=== PATIENT | male | born 1955 | race Caucasian/White ===

== ENCOUNTER 2018-11-13 16:40 | Inpatient (IN) | payer BC ==
--- NOTE | 2018-11-13 17:44 | ER Document Report ---
ED General - General Chief Complaint: Numbness Stated Complaint: DIZZY/LIMB NUMBNESS Time Seen by Provider: 11/13/18 17:22 Notes: 63-year-old male to the emergency department for evaluation of near syncopal episode. Patient was at a local restaurant when he began to feel very lightheaded and dizzy. Almost passed out. Did not pass out. Went to the car and sat down while his went inside for dinner. Continue to have feelings of dizziness. Developed numbness around his lips and face and hands and feet. States that he was relaxed and in no acute distress other than feeling like he was about to pass out. Eventually they decided to call the ambulance. Patient has been battling with some hypotensive episodes. Scheduled to be seen by GI. [place] of workup. Was recently started on new blood pressure medications and his blood pressures have been low. They have since decrease of blood pressure medication but his blood pressure has remained low. Followed by cardiothoracic surgery due to severe aortic stenosis. Has had open heart surgery in the past. Is not a candidate f or open heart surgery. Currently he is being followed by CT surgery, Dr. Dowling. TRAVEL OUTSIDE OF THE [place] IN LAST 30 DAYS: No - HPI Onset: Just prior to arrival Onset/Duration: Sudden, Constant Quality of pain: No pain Severity: Moderate Pain Level: Denies Associated symptoms: Weakness, Other - Perioral paresthesias Relieved by: Denies Similar symptoms previously: No - Related Data Allergies/Adverse Reactions: acetaminophen [From Percocet] Allergy (Verified 11/13/18 16:43) hydrocodone [From Vicodin] Allergy (Verified 11/13/18 16:43) latex Allergy (Verified 11/13/18 16:43) oxycodone [From Percocet] Allergy (Verified 11/13/18 16:43) Penicillins Allergy (Verified 11/13/18 16:43) Sulfa (Sulfonamide Antibiotics) Allergy (Verified 11/13/18 16:43) Past Medical History - General Information source: Patient - Social History Smoking Status: Never Smoker Frequency of alcohol use: None Drug Abuse: None Lives with: Spouse/Significant other Family History: CAD, Hypertension Patient has suicidal ideation: No Patient has homicidal ideation: No - Past Medical History Cardiac Medical History: Reports: Hx Coronary Artery Disease, Hx Heart Murmur Pulmonary Medical History: Reports: None Neurological Medical History: Reports: None Endocrine Medical History: Reports: None Renal/ Medical History: Denies: Hx Peritoneal Dialysis Malignancy Medical History: Reports None Review of Systems - Review of Systems Notes: Constitutional: denies: Chills, Diaphoresis, Fever, Malaise, +Weakness EENT: denies: Eye discharge, Blurred vision, Tearing, Double vision, Nose congestion, Nose discharge, Throat swelling, Mouth pain Cardiovascular: denies: Palpitations, Heart racing, Orthopnea, Dyspnea, Chest pain Respiratory: denies: Cough, Hurts to breathe, Wheezing, Shortness of breath Gastrointestinal: denies: Abdominal pain, Diarrhea, Nausea, Vomiting, Black stools, bright red blood in stool Genitourinary: denies: Burning, Dysuria, Discharge, Frequency, Flank pain, Hematuria Musculoskeletal: denies: Joint pain, Joint swelling, Muscle pain, Muscle stiffness, back pain Hematologic/Lymphatic: denies: Anemia, Easy bleeding, Easy bruising, Blood clots Neurological/Psychological: denies: Confusion, Dementia, Depression, Loss of consciousness Skin: No lesions, no masses, no skin breakdown, no abscesses Physical Exam - Vital signs Vitals: Temp Pulse Resp BP Pulse Ox 97.3 F 71 18 99/61 L 98 11/13/18 16:45 11/13/18 16:45 11/13/18 16:45 11/13/18 16:45 11/13/18 16:45 Course - Re-evaluation Re-evalutation: 11/13/18 20:25 Laboratory 11/13/18 11/13/18 11/13/18 17:10 17:10 17:10 WBC 6.6 RBC 2.69 L Hgb 7.4 L Hct 22.7 L MCV 85 MCH 27.5 MCHC 32.6 RDW 22.6 H Plt Count 223 Seg Neutrophils % 69.5 Lymphocytes % 17.0 Monocytes % 10.2 Eosinophils % 2.8 Basophils % 0.5 Absolute Neutrophils 4.6 Absolute Lymphocytes 1.1 Absolute Monocytes 0.7 Absolute Eosinophils 0.2 Absolute Basophils 0.0 Platelet Estimate ALUM OPERATOR Sodium 142.2 Potassium 4.2 Chloride 107 Carbon Dioxide 22 Anion Gap 13 BUN 39 H Creatinine 1.97 H Est GFR ( Amer) 42 L Est GFR (Non-Af Amer) 35 L Glucose 117 H Calcium 8.6 Total Bilirubin 0.4 Direct Bilirubin 0.3 Neonat Total Bilirubin Not Reportable Neonat Direct Bilirubin Not Reportable Neonat Indirect Bili Not Reportable AST 16 L ALT 24 Alkaline Phosphatase 114 Creatine Kinase 41 L CK-MB (CK-2) 0.65 Troponin I < 0.012 Total Protein 7.1 Albumin 3.6 Urine Color Urine Appearance Urine pH Ur Specific Tracy Urine Protein Urine Glucose (UA) Urine Ketones Urine Blood Urine Nitrite Urine Bilirubin Urine Urobilinogen Ur Leukocyte Esterase Urine WBC (Auto) U Hyaline Cast (Auto) Squamous Epi Cells Auto Urine Mucus (Auto) Urine Ascorbic Acid Stool Occult Blood Slides for Path Review ALUM OPERATOR Crossmatch 11/13/18 11/13/18 11/13/18 17:49 19:21 19:25 WBC RBC Hgb Hct MCV MCH MCHC RDW Plt Count Seg Neutrophils % Lymphocytes % Monocytes % Eosinophils % Basophils % Absolute Neutrophils Absolute Lymphocytes Absolute Monocytes Absolute Eosinophils Absolute Basophils Platelet Estimate Sodium Potassium Chloride Carbon Dioxide Anion Gap BUN Creatinine Est GFR ( Amer) Est GFR (Non-Af Amer) Glucose Calcium Total Bilirubin Direct Bilirubin Neonat Total Bilirubin Neonat Direct Bilirubin Neonat Indirect Bili AST ALT Alkaline Phosphatase Creatine Kinase CK-MB (CK-2) Troponin I Total Protein Albumin Urine Color YELLOW Urine Appearance CLEAR Urine pH 5.0 Ur Specific Tracy 1.009 Urine Protein NEGATIVE Urine Glucose (UA) NEGATIVE Urine Ketones NEGATIVE Urine Blood NEGATIVE Urine Nitrite NEGATIVE Urine Bilirubin NEGATIVE Urine Urobilinogen NEGATIVE Ur Leukocyte Esterase NEGATIVE Urine WBC (Auto) 0 U Hyaline Cast (Auto) 27 Squamous Epi Cells Auto <1 Urine Mucus (Auto) RARE Urine Ascorbic Acid 40 H Stool Occult Blood POSITIVE Slides for Path Review Crossmatch See Detail Chest X-Ray 11/13/18 17:43 IMPRESSION: HEART ENLARGED WITHOUT FAILURE. NO OTHER SIGNIFICANT RADIOGRAPHIC FINDING IN THE CHEST. Patient is hypotensive triage and positive occult blood with hemoglobin is 7 and hematocrit is 22. We will admit to the hospitalist at this time. Surgery has been consulted. We do have surgical services available here. Cardiology will be consulted as well. - Vital Signs Vital signs: Temp Pulse Resp BP Pulse Ox 97.3 F 71 18 109/66 99 11/13/18 16:45 11/13/18 16:45 11/13/18 16:45 11/13/18 19:41 11/13/18 20:00 - Laboratory Result Diagrams: 11/13/18 17:10 11/13/18 17:10 Laboratory results interpreted by me: 11/13/18 11/13/18 11/13/18 17:10 17:10 17:49 RBC 2.69 L Hgb 7.4 L Hct 22.7 L RDW 22.6 H BUN 39 H Creatinine 1.97 H Est GFR ( Amer) 42 L Est GFR (Non-Af Amer) 35 L Glucose 117 H AST 16 L Creatine Kinase 41 L Urine Ascorbic Acid 40 H Crossmatch 11/13/18 19:21 RBC Hgb Hct RDW BUN Creatinine Est GFR ( Amer) Est GFR (Non-Af Amer) Glucose AST Creatine Kinase Urine Ascorbic Acid Crossmatch See Detail Discharge - Discharge Clinical Impression: Near syncope GI bleed Qualifiers: GI bleed type/associated pathology: unspecified gastrointestinal hemorrhage type Qualified Code(s): K92.2 - Gastrointestinal hemorrhage, unspecified Condition: Good Disposition: ADMITTED INPATIENT Admitting Provider: Hospitalist - chucky Unit Admitted: [facility]
[2018-11-13 18:00] LABS: APPEARANCE,URINE CLEAR; BILIRUBIN,URINE NEGATIVE (NEGATIVE); COLOR,URINE YELLOW; GLUCOSE, URINE NEGATIVE (NEGATIVE); KETONES,URINE NEGATIVE (NEGATIVE); LEUKOCYTE ESTERASE,URINE NEGATIVE (NEGATIVE); NITRITE,URINE NEGATIVE (NEGATIVE); PROTEIN,URINE NEGATIVE (NEGATIVE); URINE SPECIFIC GRAVITY 1.009; UROBILINOGEN,URINE NEGATIVE mg/dL (<2.0)
[2018-11-13 18:06] LABS: ABSOLUTE EOSINOPHILS # (AUTO) 0.2 10^3/uL (0.0-0.6); ABSOLUTE LYMPHOCYTES (AUTO) 1.1 10^3/uL (0.5-4.7); ABSOLUTE MONOCYTES (AUTO) 0.7 10^3/uL (0.1-1.4); ABSOLUTE NEUT (AUTO) 4.6 10^3/uL (1.7-8.2); BASOPHILS % (AUTO) 0.5 % (0-2); EOSINOPHILS % (AUTO) 2.8 % (0-6); HEMATOCRIT 22.7 % (37.9-51.0); MEAN CORPUSCULAR HEMOGLOBIN 27.5 pg (27.0-33.4); MEAN CORPUSCULAR HGB CONC 32.6 g/dL (32.0-36.0); MEAN CORPUSCULAR VOLUME 85 fl (80-97); MONOCYTES % (AUTO) 10.2 % (3-13); PLATELET COUNT 223 10^3/uL (150-450); RED BLOOD COUNT 2.69 10^6/uL (4.35-5.55); RED CELL DISTRIBUTION WIDTH 22.6 % (11.5-14.0); SEGMENTED NEUTROPHILS % (AUTO) 69.5 % (42-78); TOTAL CELLS COUNTED % (AUTO) 100 %; WHITE BLOOD COUNT 6.6 10^3/uL (4.0-10.5)
[2018-11-13 18:08] LABS: ALANINE AMINOTRANSFERASE 24 U/L (21-72); ALBUMIN 3.6 g/dL (3.5-5.0); ALKALINE PHOSPHATASE 114 U/L (38-126); ANION GAP 13 (5-19); ASPARTATE AMINO TRANSFERASE 16 U/L (17-59); BILIRUBIN,DIRECT 0.3 mg/dL (0.0-0.4); BILIRUBIN,TOTAL 0.4 mg/dL (0.2-1.3); BLOOD UREA NITROGEN 39 mg/dL (7-20); CALCIUM 8.6 mg/dL (8.4-10.2); CARBON DIOXIDE 22 mmol/L (22-30); CHLORIDE 107 mmol/L (98-107); CREATINE KINASE 41 U/L (55-170); GLUCOSE 117 mg/dL (75-110); POTASSIUM 4.2 mmol/L (3.6-5.0); SODIUM 142.2 mmol/L (137-145); TOTAL PROTEIN 7.1 g/dL (6.3-8.2)
--- NOTE | 2018-11-13 18:11 | RADIOLOGY REPORT (SQ) ---
EXAM DESCRIPTION: CHEST SINGLE VIEW COMPLETED DATE/TIME: 11/13/2018 6:00 pm REASON FOR STUDY: near syncope COMPARISON: None. NUMBER OF VIEWS: One view. TECHNIQUE: Single frontal radiographic view of the chest acquired. LIMITATIONS: None. FINDINGS: LUNGS AND PLEURA: No opacities, masses or pneumothorax. No pleural effusion. MEDIASTINUM AND HILAR STRUCTURES: No masses. Contour normal. HEART AND VASCULAR STRUCTURES: Heart enlarged without failure. Normal vasculature. BONES: No acute findings. HARDWARE: CABG hardware. OTHER: No other significant finding. IMPRESSION: HEART ENLARGED WITHOUT FAILURE. NO OTHER SIGNIFICANT RADIOGRAPHIC FINDING IN THE CHEST. TECHNICAL DOCUMENTATION: JOB ID: [id number] [employer]- All Rights Reserved Reading location - IP/workstation name: [email or web address]
[2018-11-13 18:18] LABS: CREATINE KINASE MB 0.65 ng/mL (<4.55); HEMOGLOBIN 7.4 g/dL (13.5-17.0)
[2018-11-13 18:20] LABS: TROPONIN I < 0.012 ng/mL
[2018-11-13] MEDS ORDERED: NORMAL SALINE 500 ML IV ONE (19:12)
[2018-11-13] MEDS ORDERED: NORMAL SALINE 250 ML IV PRN (19:57)
[2018-11-13] MEDS ORDERED: MAGNESIUM HYDROXIDE SUSP 30 ML UDCUP PO PRN (20:23)
[2018-11-13] MEDS ORDERED: MAG HYDROX/AL HYDROX/SIMETH SUSP 30 ML UDCUP PO PRN (20:23)
[2018-11-13] MEDS ORDERED: PANTOPRAZOLE SODIUM 40 MG VIAL IV PRN (20:26)
[2018-11-13] MEDS ORDERED: PANTOPRAZOLE SODIUM 40 MG VIAL IV ONE (20:26)
[2018-11-13 20:53] LABS: ABSOLUTE EOSINOPHILS # (AUTO) 0.1 10^3/uL (0.0-0.6); ABSOLUTE LYMPHOCYTES (AUTO) 1.5 10^3/uL (0.5-4.7); ABSOLUTE MONOCYTES (AUTO) 0.6 10^3/uL (0.1-1.4); ABSOLUTE NEUT (AUTO) 4.3 10^3/uL (1.7-8.2); BASOPHILS % (AUTO) 0.5 % (0-2); EOSINOPHILS % (AUTO) 2.3 % (0-6); HEMATOCRIT 21.7 % (37.9-51.0); LYMPHOCYTES % (AUTO) 22.1 % (13-45); MEAN CORPUSCULAR HEMOGLOBIN 27.9 pg (27.0-33.4); MEAN CORPUSCULAR HGB CONC 33.3 g/dL (32.0-36.0); MEAN CORPUSCULAR VOLUME 84 fl (80-97); MONOCYTES % (AUTO) 9.3 % (3-13); PLATELET COUNT 218 10^3/uL (150-450); RED BLOOD COUNT 2.59 10^6/uL (4.35-5.55); RED CELL DISTRIBUTION WIDTH 22.8 % (11.5-14.0); SEGMENTED NEUTROPHILS % (AUTO) 65.8 % (42-78); TOTAL CELLS COUNTED % (AUTO) 100 %; WHITE BLOOD COUNT 6.6 10^3/uL (4.0-10.5)
[2018-11-13 20:54] LABS: HEMOGLOBIN 7.2 g/dL (13.5-17.0)
[2018-11-13] MEDS ORDERED: PANTOPRAZOLE SODIUM 80 MG in NORMAL SALINE 100 ML IV ONE (22:00)
[2018-11-13] MEDS ORDERED: NORMAL SALINE 100 ML with PANTOPRAZOLE SODIUM 80 MG IV PRN ×2 (22:00)
[2018-11-13 23:06] LABS: IRON(TIBC) 68.4 ug/dL (49-181)
[2018-11-13 23:09] LABS: ABSOLUTE RETICS # 0.049 10^6/uL (0.028-0.122)
[2018-11-13] MEDS ORDERED: CETIRIZINE 10 MG TABLET PO ONE (23:45)
[2018-11-13] MEDS ORDERED: ATORVASTATIN CALCIUM 40 MG TABLET PO ONE (23:45)
[2018-11-13 23:48] LABS: INTERNATIONAL RATION (INR) 1.01; PROTHROMBIN TIME 13.8 SEC (11.4-15.4)
[2018-11-14 00:18] LABS: TROPONIN I < 0.012 ng/mL
[2018-11-14] MEDS ORDERED: ACETAMINOPHEN 325 MG TABLET PO PRN (01:07)
--- NOTE | 2018-11-14 04:47 | PDOC H&P ---
History of Present Illness Admission Date/PCP: 11/13/18 20:45 Patient complains of: Dizziness History of Present Illness: EVI MOORE JR is a 63 year old male with an extensive past medical history of moderate aortic stenosis, chronic anemia, diabetes, coronary artery disease status post coronary artery bypass graft, chronic abdominal pain, venous insufficiency with lower extremity ulcer. Patient presents after a near syncopal episode when he began feeling lightheaded and dizzy. He denies passing out but symptoms persisted prompting evaluation in the emergency room where he is found to have hypotension, presumed acute renal failure and anemia with He moccult positive stool. He he receives 1 L of normal saline and orders for 2 units of packed red blood cells and referred to the hospitalist for admission. Patient denies shortness of breath chest pain nausea vomiting. He does admit multiple recent changes to his blood pressure regiment and chronic orthostasis., Recent endoscopy negative for source of upper GI bleed. Past Medical History Cardiac Medical History: Reports: Coronary Artery Disease, Heart Murmur Pulmonary Medical History: Reports: None Neurological Medical History: Reports: None Endocrine Medical History: Reports: None Malignancy Medical History: Reports: None Psychiatric Medical History: Denies: Depression Social History Information Source: Patient, [facility] Lives with: Spouse/Significant other Smoking Status: Former Smoker Last Time Smoked: 1979 Frequency of Alcohol Use: Social Hx Recreational Drug Use: No Drugs: None Hx Prescription Drug Abuse: No - Advance Directive Resuscitation Status: Full Code Family History Family History: CAD, Hypertension Parental Family History Reviewed: Yes Children Family History Reviewed: Yes Sibling(s) Family History Reviewed.: Yes Medication/Allergy Home Medications: Acetaminophen [Tylenol Extra Strength 500 mg Tablet] 500 mg PO PRN PRN 11/13/18 Ascorbic Acid [Vitamin C 500 mg Tablet] 500 mg PO DAILY 11/13/18 Atenolol [Tenormin] 25 mg PO DAILY 11/13/18 Atorvastatin Calcium [Lipitor 40 mg Tablet] 40 mg PO QHS 11/13/18 Bumetanide [Bumex 1 mg Tablet] 1 mg PO Q12 11/13/18 Cetirizine HCl [Zyrtec 10 mg Tablet] 10 mg PO QHS 11/13/18 Ibuprofen [Motrin 400 mg Tablet] 400 mg PO PRN PRN 11/13/18 Metformin HCl [Metformin HCl ER] 500 mg PO Q12 11/13/18 Multivitamin [One-A-Day Essential] 1 each PO DAILY 11/13/18 Omeprazole 20 mg PO BID 11/13/18 Ranolazine [Ranexa] 1,000 mg PO BID 11/13/18 Allergies/Adverse Reactions: acetaminophen [From Percocet] Allergy (Verified 11/13/18 16:43) allopurinol Allergy (Verified 11/13/18 22:28) bisoprolol Allergy (Verified 11/13/18 22:28) ciprofloxacin [From Cipro] Allergy (Verified 11/13/18 22:28) diphenhydramine [From Benadryl] Allergy (Verified 11/13/18 22:28) hydrocodone [From Vicodin] Allergy (Verified 11/13/18 16:43) latex Allergy (Verified 11/13/18 16:43) moxifloxacin Allergy (Verified 11/13/18 22:28) oxycodone [From Percocet] Allergy (Verified 11/13/18 16:43) Penicillins Allergy (Verified 11/13/18 16:43) Sulfa (Sulfonamide Antibiotics) Allergy (Verified 11/13/18 16:43) Review of Systems Constitutional: PRESENT: as per HPI, weakness. ABSENT: fever(s), headache(s), night sweats Eyes: ABSENT: visual disturbances Ears: ABSENT: hearing changes Cardiovascular: PRESENT: as per HPI, dyspnea on exertion. ABSENT: chest pain, edema, orthropnea, palpitations Respiratory: PRESENT: dyspnea. ABSENT: cough Gastrointestinal: PRESENT: as per HPI. ABSENT: diarrhea, hematemesis, hematochezia, nausea, vomiting Genitourinary: ABSENT: dysuria, hematuria Musculoskeletal: ABSENT: joint swelling Integumentary: PRESENT: as per HPI, lesions, other Neurological: ABSENT: abnormal gait, abnormal speech, confusion, dizziness, focal weakness, syncope Psychiatric: ABSENT: anxiety, depression, homidical ideation, suicidal ideation Endocrine: ABSENT: cold intolerance, heat intolerance, polydipsia, polyuria Hematologic/Lymphatic: ABSENT: easy bleeding, easy bruising Physical Exam Vital Signs: Temp Pulse Resp BP Pulse Ox 98 F 68 16 120/75 99 11/14/18 03:54 11/14/18 03:54 11/14/18 03:54 11/14/18 03:54 11/14/18 03:54 Intake & Output 11/12/18 11/13/18 11/14/18 11:59 11:59 11:59 Intake Total 850 Balance 850 Weight 78.6 kg General appearance: PRESENT: cooperative, mild distress. ABSENT: disheveled Head exam: PRESENT: atraumatic, normocephalic Eye exam: PRESENT: conjunctiva pink, EOMI, PERRLA. ABSENT: scleral icterus Ear exam: PRESENT: normal external ear exam Mouth exam: PRESENT: moist, tongue midline Neck exam: ABSENT: carotid bruit, JVD, lymphadenopathy, thyromegaly Respiratory exam: PRESENT: clear to auscultation isaac. ABSENT: rales, rhonchi, wheezes Cardiovascular exam: PRESENT: +S1, +S2, systolic murmur Pulses: PRESENT: normal dorsalis pedis pul Vascular exam: PRESENT: normal capillary refill GI/Abdominal exam: PRESENT: normal bowel sounds, soft. ABSENT: distended, guarding, mass, organolmegaly, rebound, tenderness Rectal exam: PRESENT: deferred Extremities exam: PRESENT: tenderness, +1 edema, other - Chronic ulcer right leg Neurological exam: PRESENT: alert, awake, oriented to person, oriented to place, oriented to time, oriented to situation, CN II-XII grossly intact. ABSENT: motor sensory deficit Psychiatric exam: PRESENT: appropriate affect, normal mood. ABSENT: homicidal ideation, suicidal ideation Skin exam: PRESENT: dry, intact, warm, other - Chronic right leg ulcer. ABSENT: cyanosis, rash Results Laboratory Results: 11/13/18 20:25 11/13/18 17:10 11/13/18 11/13/18 11/13/18 17:10 17:10 17:10 WBC 6.6 RBC 2.69 L Hgb 7.4 L Hct 22.7 L MCV 85 MCH 27.5 MCHC 32.6 RDW 22.6 H Plt Count 223 Seg Neutrophils % 69.5 Lymphocytes % 17.0 Monocytes % 10.2 Eosinophils % 2.8 Basophils % 0.5 Absolute Neutrophils 4.6 Absolute Lymphocytes 1.1 Absolute Monocytes 0.7 Absolute Eosinophils 0.2 Absolute Basophils 0.0 Retic Count (auto) Absolute Retic Sodium 142.2 Potassium 4.2 Chloride 107 Carbon Dioxide 22 Anion Gap 13 BUN 39 H Creatinine 1.97 H Est GFR ( Amer) 42 L Est GFR (Non-Af Amer) 35 L Glucose 117 H Calcium 8.6 Iron 68.4 TIBC 384 % Saturation 18 Ferritin 17.90 Total Bilirubin 0.4 AST 16 L ALT 24 Alkaline Phosphatase 114 Total Protein 7.1 Albumin 3.6 Vitamin B12 481.0 Folate 19.80 Urine Color Urine Appearance Urine pH Ur Specific Burns Urine Protein Urine Glucose (UA) Urine Ketones Urine Blood Urine Nitrite Ur Leukocyte Esterase Urine WBC (Auto) Stool Occult Blood Blood Type Antibody Screen 11/13/18 11/13/18 11/13/18 17:10 17:49 19:21 WBC RBC Hgb Hct MCV MCH MCHC RDW Plt Count Seg Neutrophils % Lymphocytes % Monocytes % Eosinophils % Basophils % Absolute Neutrophils Absolute Lymphocytes Absolute Monocytes Absolute Eosinophils Absolute Basophils Retic Count (auto) 1.90 Absolute Retic 0.049 Sodium Potassium Chloride Carbon Dioxide Anion Gap BUN Creatinine Est GFR ( Amer) Est GFR (Non-Af Amer) Glucose Calcium Iron TIBC % Saturation Ferritin Total Bilirubin AST ALT Alkaline Phosphatase Total Protein Albumin Vitamin B12 Folate Urine Color YELLOW Urine Appearance CLEAR Urine pH 5.0 Ur Specific Burns 1.009 Urine Protein NEGATIVE Urine Glucose (UA) NEGATIVE Urine Ketones NEGATIVE Urine Blood NEGATIVE Urine Nitrite NEGATIVE Ur Leukocyte Esterase NEGATIVE Urine WBC (Auto) 0 Stool Occult Blood Blood Type A POSITIVE Antibody Screen NEGATIVE 11/13/18 11/13/18 19:25 20:25 WBC 6.6 RBC 2.59 L Hgb 7.2 L Hct 21.7 L MCV 84 MCH 27.9 MCHC 33.3 RDW 22.8 H Plt Count 218 Seg Neutrophils % 65.8 Lymphocytes % 22.1 Monocytes % 9.3 Eosinophils % 2.3 Basophils % 0.5 Absolute Neutrophils 4.3 Absolute Lymphocytes 1.5 Absolute Monocytes 0.6 Absolute Eosinophils 0.1 Absolute Basophils 0.0 Retic Count (auto) Absolute Retic Sodium Potassium Chloride Carbon Dioxide Anion Gap BUN Creatinine Est GFR ( Amer) Est GFR (Non-Af Amer) Glucose Calcium Iron TIBC % Saturation Ferritin Total Bilirubin AST ALT Alkaline Phosphatase Total Protein Albumin Vitamin B12 Folate Urine Color Urine Appearance Urine pH Ur Specific Burns Urine Protein Urine Glucose (UA) Urine Ketones Urine Blood Urine Nitrite Ur Leukocyte Esterase Urine WBC (Auto) Stool Occult Blood POSITIVE Blood Type Antibody Screen 11/13/18 11/13/18 11/13/18 17:10 17:10 17:10 Creatine Kinase 41 L Cancelled CK-MB (CK-2) 0.65 Troponin I < 0.012 11/13/18 11/13/18 23:27 23:27 Creatine Kinase 45 L CK-MB (CK-2) 0.70 Troponin I < 0.012 Impressions: Chest X-Ray 11/13/18 17:43 IMPRESSION: HEART ENLARGED WITHOUT FAILURE. NO OTHER SIGNIFICANT RADIOGRAPHIC FINDING IN THE CHEST. Assessment & Plan - Diagnosis (1) Moderate aortic stenosis Is this a current diagnosis for this admission?: Yes Plan: At baseline follow-up outpatient cardiology Dr. Curran, avoid volume contraction and nitrates, lifestyle modification with avoidance of abrupt changes of position, LULI stockings (2) Anemia Is this a current diagnosis for this admission?: Yes Plan: Appears chronic, likely secondary to chronic AVM from #1, transfuse packed red blood cells, reevaluate CBC follow-up anemia labs (3) Hypotension Is this a current diagnosis for this admission?: Yes Plan: Secondary to #1, hold antihypertensive medication, reevaluate orthostatic blood pressures (4) Acute renal failure Is this a current diagnosis for this admission?: Yes Plan: Secondary to hypotension, avoid nephrotoxic meds and doses reevaluate chemistry (5) Orthostatic dizziness Is this a current diagnosis for this admission?: Yes Plan: Secondary to #1, supportive care, optimize blood pressure, consider consultation with primary gate clerk for pressors such as Midrin (6) Near syncope Is this a current diagnosis for this admission?: Yes Plan: Secondary to orthostatic hypotension in #1. Transfuse packed red blood cells, optimize blood pressure, supportive care and lifestyle modification, - Time Time Spent: 50 to 70 Minutes - Inpatient Certification Medical Necessity: Need Close Monitoring Due to Risk of Patient Decompensation
[2018-11-14 06:17] LABS: ABSOLUTE EOSINOPHILS # (AUTO) 0.2 10^3/uL (0.0-0.6); ABSOLUTE LYMPHOCYTES (AUTO) 1.2 10^3/uL (0.5-4.7); ABSOLUTE MONOCYTES (AUTO) 0.6 10^3/uL (0.1-1.4); ABSOLUTE NEUT (AUTO) 3.1 10^3/uL (1.7-8.2); BASOPHILS % (AUTO) 0.6 % (0-2); EOSINOPHILS % (AUTO) 3.8 % (0-6); HEMATOCRIT 24.4 % (37.9-51.0); HEMOGLOBIN 8.2 g/dL (13.5-17.0); LYMPHOCYTES % (AUTO) 23.2 % (13-45); MEAN CORPUSCULAR HEMOGLOBIN 28.1 pg (27.0-33.4); MEAN CORPUSCULAR HGB CONC 33.5 g/dL (32.0-36.0); MEAN CORPUSCULAR VOLUME 84 fl (80-97); MONOCYTES % (AUTO) 11.3 % (3-13); PLATELET COUNT 202 10^3/uL (150-450); RED BLOOD COUNT 2.91 10^6/uL (4.35-5.55); RED CELL DISTRIBUTION WIDTH 21.7 % (11.5-14.0); SEGMENTED NEUTROPHILS % (AUTO) 61.1 % (42-78); TOTAL CELLS COUNTED % (AUTO) 100 %; WHITE BLOOD COUNT 5.2 10^3/uL (4.0-10.5)
[2018-11-14 06:29] LABS: ANION GAP 11 (5-19); BLOOD UREA NITROGEN 28 mg/dL (7-20); CALCIUM 9.2 mg/dL (8.4-10.2); CARBON DIOXIDE 22 mmol/L (22-30); CHLORIDE 109 mmol/L (98-107); GLUCOSE 101 mg/dL (75-110); POTASSIUM 3.8 mmol/L (3.6-5.0); SODIUM 141.8 mmol/L (137-145)
[2018-11-14 06:39] LABS: CREATINE KINASE MB 0.63 ng/mL (<4.55)
--- NOTE | 2018-11-14 06:41 | EKG REPORT ---
SEVERITY:- ABNORMAL ECG - SINUS RHYTHM PROBABLE LEFT ATRIAL ABNORMALITY LAFB, FIRST DEGREE AVB QT PROLONGATION. : Confirmed by: Forest Figueroa MD 14-Nov-2018 06:40:58
[2018-11-14 06:48] LABS: TROPONIN I < 0.012 ng/mL
--- NOTE | 2018-11-14 06:50 | PDOC CONSULTATION ---
Consultation Consult Date: 11/14/18 Attending physician:: NADEEM FLYNN Consult reason:: GI bleed History of Present Illness Admission Date/PCP: 11/13/18 20:45 Patient complains of: Weakness near syncope History of Present Illness: EVI MOORE JR is a 63 year old male With a known history of CABG, history of aortic stenosis, history of chronic anemia presents to the emergency department via ground rescue reporting near collapse and weakness. He was evaluated in the emergency department, found to have orthostatic hypotension, and a hemoglobin of 7.4. He was admitted to the hospital service for resuscitation, blood transfusion and further evaluation. Patient is followed by multiple physicians at [facility], including Dr. Escobedo, sales support associate, who is been managing aortic stenosis nonoperatively; his coronary artery bypass grafting was performed over 6 years ago. He underwent laparoscopic cholecystectomy by Dr. Glory Gaines several years ago; patient is not on a blood thinner. He has a history of heme positive stools; evaluated by Dr. Christiano Colunga, with colonoscopy in 2014, no pathologic findings; patient underwent upper endoscopy by Dr. Christiano Colunga in June 2018 with no pathologic findings; medical records not available for corroboration. Patient has never had a hemoglobin in the 7 range. Has had a blood transfusion in the past. Denies history of known gastrointestinal pathology. There is no history of gastrointestinal tumors or colorectal tumors. He denies seeing blood in his stool, denies hematemesis; stool was heme positive emergency department. Packed red blood cells and his hemoglobin bumped up 1 g. He has no complaints now and resting comfortably on the third floor Past Medical History Cardiac Medical History: Reports: Coronary Artery Disease, Heart Murmur Pulmonary Medical History: Reports: None Neurological Medical History: Reports: None Endocrine Medical History: Reports: None Malignancy Medical History: Reports: None Psychiatric Medical History: Denies: Depression Past Surgical History Past Surgical History: Coronary artery bypass grafting, laparoscopic cholecystectomy, management of left lower extremity wound Social History Lives with: Spouse/Significant other Smoking Status: Former Smoker Last Time Smoked: 1979 Frequency of Alcohol Use: Social Hx Recreational Drug Use: No Drugs: None Hx Prescription Drug Abuse: No - Advance Directive Resuscitation Status: Full Code Family History Family History: CAD, Hypertension Parental Family History Reviewed: Yes Children Family History Reviewed: Yes Sibling(s) Family History Reviewed.: Yes Medication/Allergy Home Medications: Acetaminophen [Tylenol Extra Strength 500 mg Tablet] 500 mg PO PRN PRN 11/13/18 Ascorbic Acid [Vitamin C 500 mg Tablet] 500 mg PO DAILY 11/13/18 Atenolol [Tenormin] 25 mg PO DAILY 11/13/18 Atorvastatin Calcium [Lipitor 40 mg Tablet] 40 mg PO QHS 11/13/18 Bumetanide [Bumex 1 mg Tablet] 1 mg PO Q12 11/13/18 Cetirizine HCl [Zyrtec 10 mg Tablet] 10 mg PO QHS 11/13/18 Ibuprofen [Motrin 400 mg Tablet] 400 mg PO PRN PRN 11/13/18 Metformin HCl [Metformin HCl ER] 500 mg PO Q12 11/13/18 Multivitamin [One-A-Day Essential] 1 each PO DAILY 11/13/18 Omeprazole 20 mg PO BID 11/13/18 Ranolazine [Ranexa] 1,000 mg PO BID 11/13/18 Allergies/Adverse Reactions: acetaminophen [From Percocet] Allergy (Verified 11/13/18 16:43) allopurinol Allergy (Verified 11/13/18 22:28) bisoprolol Allergy (Verified 11/13/18 22:28) ciprofloxacin [From Cipro] Allergy (Verified 11/13/18 22:28) diphenhydramine [From Benadryl] Allergy (Verified 11/13/18 22:28) hydrocodone [From Vicodin] Allergy (Verified 11/13/18 16:43) latex Allergy (Verified 11/13/18 16:43) moxifloxacin Allergy (Verified 11/13/18 22:28) oxycodone [From Percocet] Allergy (Verified 11/13/18 16:43) Penicillins Allergy (Verified 11/13/18 16:43) Sulfa (Sulfonamide Antibiotics) Allergy (Verified 11/13/18 16:43) Review of Systems Constitutional: ABSENT: chills, fever(s), headache(s), weight gain, weight loss Eyes: ABSENT: visual disturbances Ears: ABSENT: hearing changes Cardiovascular: PRESENT: as per HPI Genitourinary: ABSENT: dysuria, hematuria Musculoskeletal: ABSENT: joint swelling Integumentary: PRESENT: as per HPI Physical Exam Vital Signs: Temp Pulse Resp BP Pulse Ox 98 F 68 16 120/75 99 11/14/18 03:54 11/14/18 03:54 11/14/18 03:54 11/14/18 03:54 11/14/18 03:54 Intake & Output 11/12/18 11/13/18 11/14/18 06:59 06:59 06:59 Intake Total 850 Balance 850 Weight 78.6 kg General appearance: PRESENT: no acute distress Head exam: PRESENT: normocephalic Eye exam: PRESENT: nystagmus Mouth exam: PRESENT: dry mucosa Neck exam: PRESENT: full ROM Respiratory exam: PRESENT: clear to auscultation isaac, other - Scar midline consistent with previous sternotomy Cardiovascular exam: PRESENT: other - Systolic ejection murmur best heard over the mid sternum Pulses: PRESENT: normal carotid pulses, normal radial pulses, normal femoral pulses Musculoskeletal exam: PRESENT: other - Chronic skin changes in left lower extremity consistent with healed ulcer Neurological exam: PRESENT: alert, awake, oriented to person, oriented to place Psychiatric exam: PRESENT: appropriate affect Results Laboratory Results: 11/14/18 05:44 11/14/18 05:44 11/13/18 11/13/18 11/13/18 17:10 17:10 17:10 WBC 6.6 RBC 2.69 L Hgb 7.4 L Hct 22.7 L MCV 85 MCH 27.5 MCHC 32.6 RDW 22.6 H Plt Count 223 Seg Neutrophils % 69.5 Lymphocytes % 17.0 Monocytes % 10.2 Eosinophils % 2.8 Basophils % 0.5 Absolute Neutrophils 4.6 Absolute Lymphocytes 1.1 Absolute Monocytes 0.7 Absolute Eosinophils 0.2 Absolute Basophils 0.0 Retic Count (auto) Absolute Retic Sodium 142.2 Potassium 4.2 Chloride 107 Carbon Dioxide 22 Anion Gap 13 BUN 39 H Creatinine 1.97 H Est GFR ( Amer) 42 L Est GFR (Non-Af Amer) 35 L Glucose 117 H Calcium 8.6 Iron 68.4 TIBC 384 % Saturation 18 Ferritin 17.90 Total Bilirubin 0.4 AST 16 L ALT 24 Alkaline Phosphatase 114 Total Protein 7.1 Albumin 3.6 Vitamin B12 481.0 Folate 19.80 Urine Color Urine Appearance Urine pH Ur Specific [place] Urine Protein Urine Glucose (UA) Urine Ketones Urine Blood Urine Nitrite Ur Leukocyte Esterase Urine WBC (Auto) Stool Occult Blood Blood Type Antibody Screen 11/13/18 11/13/18 11/13/18 17:10 17:49 19:21 WBC RBC Hgb Hct MCV MCH MCHC RDW Plt Count Seg Neutrophils % Lymphocytes % Monocytes % Eosinophils % Basophils % Absolute Neutrophils Absolute Lymphocytes Absolute Monocytes Absolute Eosinophils Absolute Basophils Retic Count (auto) 1.90 Absolute Retic 0.049 Sodium Potassium Chloride Carbon Dioxide Anion Gap BUN Creatinine Est GFR ( Amer) Est GFR (Non-Af Amer) Glucose Calcium Iron TIBC % Saturation Ferritin Total Bilirubin AST ALT Alkaline Phosphatase Total Protein Albumin Vitamin B12 Folate Urine Color YELLOW Urine Appearance CLEAR Urine pH 5.0 Ur Specific [place] 1.009 Urine Protein NEGATIVE Urine Glucose (UA) NEGATIVE Urine Ketones NEGATIVE Urine Blood NEGATIVE Urine Nitrite NEGATIVE Ur Leukocyte Esterase NEGATIVE Urine WBC (Auto) 0 Stool Occult Blood Blood Type A POSITIVE Antibody Screen NEGATIVE 11/13/18 11/13/18 11/14/18 19:25 20:25 05:44 WBC 6.6 5.2 RBC 2.59 L 2.91 L Hgb 7.2 L 8.2 L Hct 21.7 L 24.4 L MCV 84 84 MCH 27.9 28.1 MCHC 33.3 33.5 RDW 22.8 H 21.7 H Plt Count 218 202 Seg Neutrophils % 65.8 61.1 Lymphocytes % 22.1 23.2 Monocytes % 9.3 11.3 Eosinophils % 2.3 3.8 Basophils % 0.5 0.6 Absolute Neutrophils 4.3 3.1 Absolute Lymphocytes 1.5 1.2 Absolute Monocytes 0.6 0.6 Absolute Eosinophils 0.1 0.2 Absolute Basophils 0.0 0.0 Retic Count (auto) Absolute Retic Sodium Potassium Chloride Carbon Dioxide Anion Gap BUN Creatinine Est GFR ( Amer) Est GFR (Non-Af Amer) Glucose Calcium Iron TIBC % Saturation Ferritin Total Bilirubin AST ALT Alkaline Phosphatase Total Protein Albumin Vitamin B12 Folate Urine Color Urine Appearance Urine pH Ur Specific [place] Urine Protein Urine Glucose (UA) Urine Ketones Urine Blood Urine Nitrite Ur Leukocyte Esterase Urine WBC (Auto) Stool Occult Blood POSITIVE Blood Type Antibody Screen 11/14/18 05:44 WBC RBC Hgb Hct MCV MCH MCHC RDW Plt Count Seg Neutrophils % Lymphocytes % Monocytes % Eosinophils % Basophils % Absolute Neutrophils Absolute Lymphocytes Absolute Monocytes Absolute Eosinophils Absolute Basophils Retic Count (auto) Absolute Retic Sodium 141.8 Potassium 3.8 Chloride 109 H Carbon Dioxide 22 Anion Gap 11 BUN 28 H Creatinine 1.47 H Est GFR ( Amer) 59 L Est GFR (Non-Af Amer) 49 L Glucose 101 Calcium 9.2 Iron TIBC % Saturation Ferritin Total Bilirubin AST ALT Alkaline Phosphatase Total Protein Albumin Vitamin B12 Folate Urine Color Urine Appearance Urine pH Ur Specific [place] Urine Protein Urine Glucose (UA) Urine Ketones Urine Blood Urine Nitrite Ur Leukocyte Esterase Urine WBC (Auto) Stool Occult Blood Blood Type Antibody Screen 11/13/18 11/13/18 11/13/18 17:10 17:10 17:10 Creatine Kinase 41 L Cancelled CK-MB (CK-2) 0.65 Troponin I < 0.012 11/13/18 11/13/18 11/14/18 23:27 23:27 05:44 Creatine Kinase 45 L 50 L CK-MB (CK-2) 0.70 Troponin I < 0.012 Impressions: Chest X-Ray 11/13/18 17:43 IMPRESSION: HEART ENLARGED WITHOUT FAILURE. NO OTHER SIGNIFICANT RADIOGRAPHIC FINDING IN THE CHEST. Assessment & Plan - Diagnosis (1) GI bleed Qualifiers: GI bleed type/associated pathology: unspecified gastrointestinal hemorrhage type Qualified Code(s): K92.2 - Gastrointestinal hemorrhage, unspecified Is this a current diagnosis for this admission?: Yes Plan: Impression: Acute episode of syncope with orthostatic hypotension associated with severe anemia, dehydration; exact etiology remains elusive. Heme positive stool in the emergency department but no sherlyn blood; History of chronic blood loss anemia of unclear etiology; now status post transfusion 1 unit of blood with appropriate elevation in hemoglobin Discussion: 1. Patient would benefit from additional blood transfusion 2. Patient's hemoglobin has never been as low as 7.2. I explained to the patient and his that something significant is going on likely chronic GI bleed although other sources of chronic blood loss may be responsible; I did recommend repeat upper and lower endoscopy; however patient declines at this moment due to his anticipation of undergoing these procedures at [facility] next month, and the proximity to [place]. We also discussed the limitations of endoscopy and identifying occult sources of blood loss from inaccessible areas of the GI tract such as small bowel. 3. I suggest keeping him n.p.o. for now; Dr. Eliceo Godinez will reexamine the patient later this morning and update treatment plan as patient desires. (2) Status post aorto-coronary artery bypass graft Is this a current diagnosis for this admission?: Yes (3) Acute renal failure Is this a current diagnosis for this admission?: Yes (4) Anemia Is this a current diagnosis for this admission?: Yes (5) Hypotension Is this a current diagnosis for this admission?: Yes (6) Moderate aortic stenosis Is this a current diagnosis for this admission?: Yes (7) Near syncope Is this a current diagnosis for this admission?: Yes - Time Time Spent: 30 to 50 Minutes Smoking Cessation Education: over 10 minutes Medications reviewed and adjusted accordingly: Yes Anticipated discharge: Home
[2018-11-14 14:07] VITALS: BP 120/75
--- NOTE | 2018-11-14 15:45 | PDOC DISCHARGE SUMMARY ---
General - Admit/Disc Date/PCP Admission Date/Primary Care Provider: 11/13/18 20:45 Discharge Date: 11/14/18 - Discharge Diagnosis (1) Anemia Is this a current diagnosis for this admission?: Yes Summary: The patient presented with hemoglobin of 7.2. His states that he has been dealing with anemia for at least a month. He did not report any evidence of melena or hematochezia. The patient was seen by Dr. Godinez. The patient has a colonoscopy scheduled for 2-3 weeks and they are in the process of working up his anemia. He does have renal failure. It is difficult to know how acute this is. There are no laboratory studies over the last 2 years in our records. (2) Near syncope Is this a current diagnosis for this admission?: Yes Summary: The patient is seen 2 different cardiologists to try to ascertain the etiology of these episodes. He has had multiple tests. He currently has a loop recorder in place. He will be seeing his center administrator shortly and they will interrogate the recorder. Because of his aortic stenosis he stays well-hydrated. I suggested that he also change positions very slowly. He has felt fine this morning. (3) Orthostatic dizziness Is this a current diagnosis for this admission?: Yes Summary: Likely multiple etiologies including his anemia, possible contribution from aortic stenosis and possible underlying arrhythmia. (4) Status post aorto-coronary artery bypass graft Is this a current diagnosis for this admission?: Yes Summary: Patient reports that they were no significant issues with his bypass several years ago. As noted above he is following up with 2 center administrator for opinions on his possible cardiogenic near syncope. He does follow-up with his center administrator regularly. (5) Acute renal failure Is this a current diagnosis for this admission?: Yes Summary: Patient is currently stage III kidney failure. It is hard to know how acute this is. The urinalysis does have hyaline casts. As this is not an acute issue I will defer workup to his primary care physician. - Additional Information Resuscitation Status: Full Code Discharge Diet: Cardiac Discharge Activity: Balance Activity w/Rest Home Medications: Acetaminophen [Tylenol Extra Strength 500 mg Tablet] 500 mg PO PRN PRN 11/13/18 Ascorbic Acid [Vitamin C 500 mg Tablet] 500 mg PO DAILY 11/13/18 Atenolol [Tenormin] 25 mg PO DAILY 11/13/18 Atorvastatin Calcium [Lipitor 40 mg Tablet] 40 mg PO QHS 11/13/18 Bumetanide [Bumex 1 mg Tablet] 1 mg PO Q12 11/13/18 Cetirizine HCl [Zyrtec 10 mg Tablet] 10 mg PO QHS 11/13/18 Ibuprofen [Motrin 400 mg Tablet] 400 mg PO PRN PRN 11/13/18 Metformin HCl [Metformin HCl ER] 500 mg PO Q12 11/13/18 Multivitamin [One-A-Day Essential] 1 each PO DAILY 11/13/18 Omeprazole 20 mg PO BID 11/13/18 Ranolazine [Ranexa] 1,000 mg PO BID 11/13/18 History of Present Illness Patient complains of: Lightheadedness with near passing out. History of Present Illness: EVI MOORE JR is a 63 year old male with a complex medical history including coronary artery disease, possible arrhythmia, renal failure unknown to be acute or chronic and anemia with Hemoccult positive stool but no sherlyn bleeding. This is not the first episode but the patient did present to the hospital after acute onset of lightheadedness/dizziness. Although he did not lose consciousness his symptoms persisted despite resting. He did not report any room spinning. The patient has had a Holter monitor that was fairly ineffective. He now has an implanted loop recorder. He is seeing his primary center administrator and getting a second opinion from a center administrator in [place]. He has follow-up appointments presently. I believe he is getting the loop recorder removed next week. He also has elevated BUN and creatinine with an estimated GFR of 49. It is hard to know if this is acute, subacute or somewhat chronic. He reports that there was no mention of kidney issues during his bypass several years ago. He does have aortic stenosis. This is being followed by cardiology. He has been having these episodes for several months. He also reports that his primary care physician is aware of his anemia. He is having a colonoscopy in early November to investigate Hemoccult positive stool with anemia. Hospital Course Hospital Course: The patient had an unremarkable hospital course. He did receive 1 L of fluid and 1 unit of packed red blood cells. His hemoglobin went from 7.2-8.2. The patient actually feels good this morning. He is anxious to go home. This episode was not the initial episode and he has become somewhat accustomed to dealing with it. It did seem that the combination of fluid and transfusion helped. I strongly encouraged him to maintain well hydrated. He has had multiple changes in his cardiac medications recently. He did not suggest any changes since he is seeing his center administrator in the next 2 weeks. The patient was stable today. He is quite anxious to go home. I spoke with Dr. Godinez who saw the patient in consultation. Because the patient is already scheduled for a colonoscopy with his advisory intern and this is not a new issue, there is no need for urgent colonoscopy and he feels the patient is safe to discharge. Physical Exam Vital Signs: Temp Pulse Resp BP Pulse Ox 98.7 F 65 16 120/75 99 11/14/18 14:05 11/14/18 14:05 11/14/18 14:05 11/14/18 14:05 11/14/18 14:05 Intake & Output 11/13/18 11/14/18 11/15/18 06:59 06:59 06:59 Intake Total 850 Balance 850 Weight 78.6 kg General appearance: PRESENT: no acute distress, cooperative, well-developed Head exam: PRESENT: atraumatic, normocephalic Respiratory exam: PRESENT: clear to auscultation isaac, symmetrical, unlabored. ABSENT: rales, rhonchi, wheezes Cardiovascular exam: PRESENT: RRR, +S1, +S2, systolic murmur - 3/6 systolic murmur GI/Abdominal exam: PRESENT: normal bowel sounds, soft. ABSENT: distended, guarding, tenderness Extremities exam: PRESENT: pedal edema Neurological exam: PRESENT: alert, awake, oriented to person, oriented to place, oriented to time, oriented to situation, CN II-XII grossly intact Psychiatric exam: PRESENT: appropriate affect, normal mood. ABSENT: agitated, anxious Focused psych exam: ABSENT: restlessness Skin exam: PRESENT: other - Reported chronic ulcer on his leg that I did not examine at discharge. Results Laboratory Results: 11/14/18 05:44 11/14/18 05:44 11/13/18 11/13/18 11/13/18 17:10 17:10 17:10 WBC 6.6 RBC 2.69 L Hgb 7.4 L Hct 22.7 L MCV 85 MCH 27.5 MCHC 32.6 RDW 22.6 H Plt Count 223 Seg Neutrophils % 69.5 Lymphocytes % 17.0 Monocytes % 10.2 Eosinophils % 2.8 Basophils % 0.5 Absolute Neutrophils 4.6 Absolute Lymphocytes 1.1 Absolute Monocytes 0.7 Absolute Eosinophils 0.2 Absolute Basophils 0.0 Retic Count (auto) Absolute Retic Sodium 142.2 Potassium 4.2 Chloride 107 Carbon Dioxide 22 Anion Gap 13 BUN 39 H Creatinine 1.97 H Est GFR ( Amer) 42 L Est GFR (Non-Af Amer) 35 L Glucose 117 H Calcium 8.6 Iron 68.4 TIBC 384 % Saturation 18 Ferritin 17.90 Total Bilirubin 0.4 AST 16 L ALT 24 Alkaline Phosphatase 114 Total Protein 7.1 Albumin 3.6 Vitamin B12 481.0 Folate 19.80 Urine Color Urine Appearance Urine pH Ur Specific [place] Urine Protein Urine Glucose (UA) Urine Ketones Urine Blood Urine Nitrite Ur Leukocyte Esterase Urine WBC (Auto) Stool Occult Blood Blood Type Antibody Screen 11/13/18 11/13/18 11/13/18 17:10 17:49 19:21 WBC RBC Hgb Hct MCV MCH MCHC RDW Plt Count Seg Neutrophils % Lymphocytes % Monocytes % Eosinophils % Basophils % Absolute Neutrophils Absolute Lymphocytes Absolute Monocytes Absolute Eosinophils Absolute Basophils Retic Count (auto) 1.90 Absolute Retic 0.049 Sodium Potassium Chloride Carbon Dioxide Anion Gap BUN Creatinine Est GFR ( Amer) Est GFR (Non-Af Amer) Glucose Calcium Iron TIBC % Saturation Ferritin Total Bilirubin AST ALT Alkaline Phosphatase Total Protein Albumin Vitamin B12 Folate Urine Color YELLOW Urine Appearance CLEAR Urine pH 5.0 Ur Specific [place] 1.009 Urine Protein NEGATIVE Urine Glucose (UA) NEGATIVE Urine Ketones NEGATIVE Urine Blood NEGATIVE Urine Nitrite NEGATIVE Ur Leukocyte Esterase NEGATIVE Urine WBC (Auto) 0 Stool Occult Blood Blood Type A POSITIVE Antibody Screen NEGATIVE 11/13/18 11/13/18 11/14/18 19:25 20:25 05:44 WBC 6.6 5.2 RBC 2.59 L 2.91 L Hgb 7.2 L 8.2 L Hct 21.7 L 24.4 L MCV 84 84 MCH 27.9 28.1 MCHC 33.3 33.5 RDW 22.8 H 21.7 H Plt Count 218 202 Seg Neutrophils % 65.8 61.1 Lymphocytes % 22.1 23.2 Monocytes % 9.3 11.3 Eosinophils % 2.3 3.8 Basophils % 0.5 0.6 Absolute Neutrophils 4.3 3.1 Absolute Lymphocytes 1.5 1.2 Absolute Monocytes 0.6 0.6 Absolute Eosinophils 0.1 0.2 Absolute Basophils 0.0 0.0 Retic Count (auto) Absolute Retic Sodium Potassium Chloride Carbon Dioxide Anion Gap BUN Creatinine Est GFR ( Amer) Est GFR (Non-Af Amer) Glucose Calcium Iron TIBC % Saturation Ferritin Total Bilirubin AST ALT Alkaline Phosphatase Total Protein Albumin Vitamin B12 Folate Urine Color Urine Appearance Urine pH Ur Specific [place] Urine Protein Urine Glucose (UA) Urine Ketones Urine Blood Urine Nitrite Ur Leukocyte Esterase Urine WBC (Auto) Stool Occult Blood POSITIVE Blood Type Antibody Screen 11/14/18 05:44 WBC RBC Hgb Hct MCV MCH MCHC RDW Plt Count Seg Neutrophils % Lymphocytes % Monocytes % Eosinophils % Basophils % Absolute Neutrophils Absolute Lymphocytes Absolute Monocytes Absolute Eosinophils Absolute Basophils Retic Count (auto) Absolute Retic Sodium 141.8 Potassium 3.8 Chloride 109 H Carbon Dioxide 22 Anion Gap 11 BUN 28 H Creatinine 1.47 H Est GFR ( Amer) 59 L Est GFR (Non-Af Amer) 49 L Glucose 101 Calcium 9.2 Iron TIBC % Saturation Ferritin Total Bilirubin AST ALT Alkaline Phosphatase Total Protein Albumin Vitamin B12 Folate Urine Color Urine Appearance Urine pH Ur Specific [place] Urine Protein Urine Glucose (UA) Urine Ketones Urine Blood Urine Nitrite Ur Leukocyte Esterase Urine WBC (Auto) Stool Occult Blood Blood Type Antibody Screen 11/13/18 11/13/18 11/13/18 17:10 17:10 17:10 Creatine Kinase 41 L Cancelled CK-MB (CK-2) 0.65 Troponin I < 0.012 11/13/18 11/13/18 11/14/18 23:27 23:27 05:44 Creatine Kinase 45 L 50 L CK-MB (CK-2) 0.70 Troponin I < 0.012 11/14/18 05:44 Creatine Kinase CK-MB (CK-2) 0.63 Troponin I < 0.012 Impressions: Chest X-Ray 11/13/18 17:43 IMPRESSION: HEART ENLARGED WITHOUT FAILURE. NO OTHER SIGNIFICANT RADIOGRAPHIC FINDING IN THE CHEST. Qualifiers - * PATIENT BEING DISCHARGED WITH ANY OF THE FOLLOWING DIAGNOSIS: No Plan Discharge Plan: As noted above the patient has several appointments already scheduled. Per Dr. Godinez's suggestion the patient will call his primary care physician to repeat a CBC in approximately 4-5 days. He will keep his scheduled appointments with cardiology to remove and interrogate the loop recorder as well as gastroenterology for a colonoscopy. The patient's is at the bedside. Both are comfortable and actually anxious for discharge. Time Spent: Greater than 30 Minutes
== END 2018-11-14 14:18 | disposition home or self-care (01) | DRG 312 ==
LOC: ER 16:40 → EH 20:45 → 3W 22:23
PROVIDERS: ADMIT Internal Medicine; ATTEND Internal Medicine
PROC: 30233N1 Transfusion of Nonautologous Red Blood Cells into Peripheral Vein, Percutaneous Approach (ICD-10-PCS; principal; 2018-11-14)
DX: I95.1 Orthostatic hypotension (principal); N17.9 Acute kidney failure, unspecified; I35.0 Nonrheumatic aortic (valve) stenosis; I25.10 Atherosclerotic heart disease of native coronary artery without angina pectoris; D63.8 Anemia in other chronic diseases classified elsewhere; D50.0 Iron deficiency anemia secondary to blood loss (chronic); E86.0 Dehydration; Q27.33 Arteriovenous malformation of digestive system vessel; Z95.1 Presence of aortocoronary bypass graft; Z79.899 Other long term (current) drug therapy; Z90.49 Acquired absence of other specified parts of digestive tract; Z87.891 Personal history of nicotine dependence; Z88.0 Allergy status to penicillin; Z88.2 Allergy status to sulfonamides; Z88.8 Allergy status to other drugs, medicaments and biological substances; Z88.6 Allergy status to analgesic agent; Z88.3 Allergy status to other anti-infective agents; Z91.040 Latex allergy status; Z82.49 Family history of ischemic heart disease and other diseases of the circulatory system
CPT/HCPCS: 36415; 36430; 71045; 80048; 80053; 81001; 82272; 82550; 82553; 82607; 82728; 82746; 82962; 83540; 83550; 84484; 85025; 85045; 85610; 85730; 86850; 86900; 86901; 86920; 93005; 93010; 99285; J7040; P9016; S0164